=== PATIENT | female | born 1995 | race Caucasian/White ===

== ENCOUNTER 2018-05-08 09:26 | Emergency (ER) | payer OTHER ==
[~2018-05-08] VITALS: Ht 170.2 cm; Wt 49.9 kg
== END 2018-05-08 12:02 | disposition home or self-care (01) ==
LOC: ER 09:26
DX: N83.291 Other ovarian cyst, right side (principal); R10.2 Pelvic and perineal pain; Z33.1 Pregnant state, incidental

== ENCOUNTER 2018-09-30 21:37 | Emergency (ER) | payer OTHER ==
[~2018-09-30] VITALS: Ht 175.3 cm; Wt 57.2 kg
[2018-09-30] MEDS ORDERED: FOLIC ACID0.4 MG (22:24)
[2018-09-30] MEDS ORDERED: PRENATAL + DHA1 EAC1 (22:24)
[2018-10-01] MEDS ORDERED: ZOFRAN ODT4 MG PO (04:31)
== END 2018-10-01 04:41 ==
LOC: ER 21:37
DX: O98.511 Other viral diseases complicating pregnancy, first trimester (principal); B34.9 Viral infection, unspecified; Z34.81 Encounter for supervision of other normal pregnancy, first trimester